=== PATIENT | male | born 1985 | race Caucasian/White ===

== ENCOUNTER 2018-12-24 19:40 | Emergency (ER) | payer SELFPAY ==
[2018-12-24] MEDS ORDERED: Acetaminophen/oxyCODONE 325-5 MG Tab PO ONE (20:29)
--- NOTE | 2018-12-24 20:30 | EDM.PDOC ---
ED HPI GENERAL MEDICAL PROBLEM - General Chief Complaint: Laceration Stated Complaint: CUT THUMB Time Seen by Provider: 12/24/18 20:25 Source of Information: Reports: Patient History Limitations: Reports: No Limitations - History of Present Illness INITIAL COMMENTS - FREE TEXT/NARRATIVE: pt was sawing up firewood and he was doing it with a table saw. He gor his left thumb in the saw. He has a very ragged laceration onthe hunt aspect of the thumb. This also went up through the nail bed. Onset: Today, Sudden Duration: Hour(s): Location: Reports: Upper Extremity, Left Associated Symptoms: Reports: No Other Symptoms, Other (pt is not current with his tetanus. ) Left Finger-Thumb Pain Score (Numeric/FACES): 5 - Related Data Allergies Allergy/AdvReac Type Severity Reaction Status Date / Time No Known Allergies Allergy Verified 12/24/18 22:02 Home Meds: Home Meds NK [No Known Home Meds] 12/24/18 [History] ED ROS GENERAL - Review of Systems Review Of Systems: See Below Constitutional: Reports: No Symptoms HEENT: Reports: No Symptoms Respiratory: Reports: No Symptoms Cardiovascular: Reports: No Symptoms Endocrine: Reports: No Symptoms GI/Abdominal: Reports: No Symptoms : Reports: No Symptoms Musculoskeletal: Reports: Other (pt has a ragged laceration at the tip of the left thumb. This is on the hunt aspect. ) Skin: Reports: No Symptoms ED EXAM, SKIN/RASH Exam: See Below Text/Narrative:: pt got his left thumb in the table saw. He has a very ragged laceration on the hunt aspect. The tissue is very chewed up. Exam Limited By: No Limitations General Appearance: Alert, Anxious, Mild Distress Extremities: Other (pt has a rgged chewed up laceration about 1.5 inches in length. This involves the nail. a xray was obtained which shows a chip off of the tip of the bone. ) Neurological: Alert, Oriented Course - Vital Signs Last Recorded V/S: Last Vital Signs Temp 36.1 C 12/24/18 22:09 Pulse 78 12/24/18 22:09 Resp 16 12/24/18 22:09 BP 121/79 12/24/18 22:09 Pulse Ox 92 L 12/24/18 22:09 - Orders/Labs/Meds Orders: Active Orders 24 hr Category Date Time Status Vaccines to be Administered [RC] PER UNIT ROUTINE Care 12/24/18 20:27 Active Meds: Medications Discontinued Medications Generic Name Dose Route Start Last Admin Trade Name Shu PRN Reason Stop Dose Admin Bacitracin 1 dose 12/24/18 20:33 Bacitracin Oint 1 Gm TOP 12/24/18 20:34 ONETIME ONE Diphtheria/Tetanus/Acell Pertussis 0.5 ml 12/24/18 20:27 Adacel IM 12/24/18 20:28 .ONCE ONE Lidocaine HCl 20 ml 12/24/18 20:32 Xylocaine 1% INJECT 12/24/18 20:33 ONETIME ONE Oxycodone/Acetaminophen 1 tab 12/24/18 20:29 12/24/18 22:14 Percocet 325-5 Mg PO 12/24/18 20:30 1 tab ONETIME ONE Administration - Re-Assessments/Exams Free Text/Narrative Re-Assessment/Exam: 12/24/18 23:34 Pt was given tetanus. The wound was soaked, infiltrated in lidocaine the wound was scrubbed well. With difficulty the wound was brought together with 5- 0 chromic and 5-0 prolene. The color of the tip was slightly dusky. He will be rechecked with surgery on Sunday to look at the color of the tip. The finger was dressed with bacatracin. Departure - Departure Time of Disposition: 23:23 Disposition: Home, Self-Care 01 Condition: Fair Clinical Impression: Laceration of left thumb - Discharge Information Referrals: PCP,None [Primary Care Provider] - Forms: ED Department Discharge Care Plan Goals: change dressing on , get a nonstick dressing --adaptic and cover with gauze , consult with surgeon sunday for recheck, keep dry, elevate norco 5/325 1 tab q6h prn for pain. Keflex 500mg tid for 5 days. - My Orders Last 24 Hours: My Active Orders 12/24/18 20:27 Vaccines to be Administered [RC] PER UNIT ROUTINE - Assessment/Plan Last 24 Hours: My Active Orders 12/24/18 20:27 Vaccines to be Administered [RC] PER UNIT ROUTINE
[2018-12-24] MEDS ORDERED: Lidocaine 1% 20 ML MDV INJECT ONE (20:32)
[2018-12-24] MEDS ORDERED: Bacitracin Oint 1 GM U/D Packet TOP ONE (20:33)
--- NOTE | 2018-12-24 20:58 | CRLCR ---
Indication: Left thumb laceration. Technique: Three views left thumb Comparison: None Findings: There is soft tissue irregularity at the distal left thumb with a chip type fracture of the tuft, largest fragment measuring 2 millimeters. Joint spaces are normally preserved. Impression: Soft tissue laceration distal left thumb with chip type fracture of the tuft. Dictated by Vik Paige MD @ Dec 24 2018 8:55PM Signed by Dr. Vik Paige @ Dec 24 2018 8:56PM
[2018-12-24] MEDS: Diphtheria,Pertussis(Acell),Tetanus Vaccine 0.5 ML SDV IM ONE ×2 (23:17→23:36)
== END 2018-12-25 00:09 | disposition home or self-care (01) ==
LOC: JP.ED 19:40
DX: S61.012A Laceration without foreign body of left thumb without damage to nail, initial encounter (principal); Z23 Encounter for immunization; W27.0XXA Contact with workbench tool, initial encounter
CPT/HCPCS: 12002; 73140; 90471; 90715; 99283; A9270; J2001